=== PATIENT | female | born 1985 | race Caucasian/White ===

== ENCOUNTER 2024-05-26 20:43 | Emergency (ER) | payer MEDICAID, OTHER ==
[~2024-05-26] VITALS: Ht 157.5 cm; Wt 112.9 kg
[2024-05-26 20:59] VITALS: BP 157/107; PULSE 115; RESP 20; TEMP 97.8; O2SAT 99
[2024-05-26] MEDS ORDERED: ATA25 PO (21:30)
--- NOTE | 2024-05-26 21:37 | NUR ---
2nd set of VS taken & reported to PA
[2024-05-26 22:25] VITALS: BP 168/106; PULSE 110; RESP 18; TEMP 98; O2SAT 99
== END 2024-05-26 22:25 | disposition home or self-care (01) ==
LOC: MED 20:43
DX: F41.0 Panic disorder [episodic paroxysmal anxiety] (principal); R00.2 Palpitations; Z79.899 Other long term (current) drug therapy
CPT/HCPCS: 93005; 99283

== ENCOUNTER 2024-06-14 18:33 | Inpatient (IN) | payer OTHER ==
[~2024-06-14] VITALS: Ht 157.5 cm; Wt 112.0 kg
[~2024-06-14 18:33] MED LIST: ATA25 PO
[2024-06-14 18:57] VITALS: BP 143/85; PULSE 113; RESP 21; TEMP 98.2; O2SAT 99
[2024-06-14] MEDS: hydrOXYzine PAMOATE 25 MG CAP PO SCH (19:52)
[2024-06-14] MEDS: NACL 0.9% 1,000 ML IV ONE (19:59)
[2024-06-14 20:03] LABS: BASOPHILS # (AUTO) 0.1 K/uL (0.00-0.22); EOSINOPHILS % (AUTO) 0.3 % (0.0-4.0); HEMATOCRIT 33.1 % (36-48); HEMOGLOBIN 10.4 g/dL (12.0-16.0); LYMPHOCYTES # (AUTO) 0.9 K/uL (2.5-16.5); LYMPHOCYTES % (AUTO) 16.9 % (20.5-51.1); MEAN CORPUSCULAR HEMOGLOBIN 25 pg (27-31); MEAN CORPUSCULAR HGB CONC 31 g/dL (33-37); MEAN CORPUSCULAR VOLUME 78.7 fL (80-94); MONOCYTES # (AUTO) 0.4 K/uL (0.8-1.0); MONOCYTES % (AUTO) 8.1 % (1.7-9.3); NEUTROPHILS # (AUTO) 3.8 K/uL (1.8-7.7); NEUTROPHILS % (AUTO) 73.7 % (42.2-75.2); PLATELET COUNT (AUTO) 168 K/uL (140-450); RED CELL DISTRIBUTION WIDTH 17.7 % (11.6-13.7); WHITE BLOOD COUNT (AUTO) 5.1 K/uL (4.8-10.8)
[2024-06-14 20:26] LABS: ALANINE AMINOTRANSFERASE 81 U/L (12-78); ALBUMIN 3.3 g/dL (3.4-5.0); ALKALINE PHOSPHATASE 120 U/L (50-136); ANION GAP 14.3 (8-16); ASPARTATE AMINOTRANSFERASE 150 U/L (15-37); CALCIUM 8.2 mg/dL (8.5-10.1); CARBON DIOXIDE 25.3 mmol/L (21-32); CHLORIDE 102 mmol/L (98-107); CREATININE 0.6 mg/dL (0.6-1.3); GFR ARICAN-AMERICAN 143 mL/min (>90); GFR NON ARICAN-AMERICAN 118 mL/min (>90); GLUCOSE 103 mg/dL (74-106); POTASSIUM 3.6 mmol/L (3.5-5.1); SODIUM SERUM 138 mmol/L (136-145); TOTAL BILIRUBIN 0.5 mg/dL (0.0-1.0); TOTAL PROTEIN, SERUM 7.9 g/dL (6.4-8.2); UREA NITROGEN, BLOOD 2 mg/dL (7-18)
[2024-06-14] MEDS ORDERED: HEPARIN PER PHARMACY MC PRN ×2 (20:40→21:30)
[2024-06-14] MEDS: ASPIRIN 81 MG TAB.CHEW PO ONE (20:41)
[2024-06-14] MEDS: HYDROcodone/APAP 5/325 MG 1 TAB TAB PO ONE (20:46)
[2024-06-14] MEDS: NITROGLYCERIN 0.4 MG TAB SL ONE (20:47)
[2024-06-14 20:54] LABS: FREE T4 (FREE THYROXINE) 0.98 ng/dL (0.76-1.46); THYROID STIMULATING HORMONE 1.21 uIU/mL (0.34-3.74)
[2024-06-14 21:10] LABS: INR 1.04 (0.8-1.2); PARTIAL THROMBOPLASTIN TIME 22.5 secs (22-35.6); PROTHROMBIN TIME 10.9 secs (10.8-13.4)
[2024-06-14] MEDS ORDERED: KCL 20 MEQ IN 100 mL PREMIX 200 ML IV PRN (21:40)
[2024-06-14] MEDS ORDERED: ONDANSETRON 4 MG/2 ML VIAL IVP PRN (21:40)
[2024-06-14] MEDS ORDERED: MORPHINE SULFATE 2 MG/ML SYR IVP PRN (21:40)
[2024-06-14 23:00] VITALS: BP 112/92; PULSE 107; PULSE 109; RESP 18; TEMP 97.3; O2SAT 99
[2024-06-15] VITALS (8 sets, daily range): BP systolic 102–125; BP diastolic 69–81; PULSE 88–109; RESP 17–18; TEMP 97–98.1; O2SAT 94–98
[2024-06-15 06:49] LABS: BASOPHILS % (AUTO) 0.7 % (0.0-2.0); EOSINOPHILS % (AUTO) 0.5 % (0.0-4.0); HEMATOCRIT 30.7 % (36-48); HEMOGLOBIN 9.8 g/dL (12.0-16.0); LYMPHOCYTES # (AUTO) 1.3 K/uL (2.5-16.5); LYMPHOCYTES % (AUTO) 29.7 % (20.5-51.1); MEAN CORPUSCULAR HEMOGLOBIN 25 pg (27-31); MEAN CORPUSCULAR HGB CONC 32 g/dL (33-37); MEAN CORPUSCULAR VOLUME 78.4 fL (80-94); MONOCYTES # (AUTO) 0.6 K/uL (0.8-1.0); MONOCYTES % (AUTO) 13.9 % (1.7-9.3); NEUTROPHILS # (AUTO) 2.3 K/uL (1.8-7.7); NEUTROPHILS % (AUTO) 55.2 % (42.2-75.2); PLATELET COUNT (AUTO) 152 K/uL (140-450); RED BLOOD CELL COUNT(AUTO) 3.92 MIL/uL (4.20-5.40); RED CELL DISTRIBUTION WIDTH 18.1 % (11.6-13.7); WHITE BLOOD COUNT (AUTO) 4.2 K/uL (4.8-10.8)
[2024-06-15 07:30] LABS: ANION GAP 11.7 (8-16); CARBON DIOXIDE 27.4 mmol/L (21-32); CREATININE 0.7 mg/dL (0.6-1.3); POTASSIUM 3.1 mmol/L (3.5-5.1)
[2024-06-15] MEDS ORDERED: hePARIN / DEXT 5% PREMIX 250 ML IV SCH (07:30)
[2024-06-15 07:37] LABS: ALBUMIN 2.9 g/dL (3.4-5.0); MAGNESIUM 1.5 mg/dL (1.8-2.4); TOTAL BILIRUBIN 0.8 mg/dL (0.0-1.0)
[2024-06-15] MEDS: ASPIRIN 81 MG TAB.CHEW PO SCH (09:22)
[2024-06-15] MEDS: ATORVASTATIN 20 MG TAB PO SCH (09:23)
[2024-06-15] MEDS: POTASSIUM CHLORIDE 10 MEQ TABER PO PRN (19:19)
[2024-06-15] MEDS: MAGNESIUM OXIDE 400 MG TAB PO PRN (19:20)
[2024-06-15] MEDS: ACETAMINOPHEN 325 MG TAB PO PRN (21:45)
[2024-06-15] MEDS: MEDS-TO-BEDS MC SCH (21:47)
[2024-06-16] VITALS: BP 117/65; PULSE 83; PULSE 85; RESP 20; TEMP 97; O2SAT 98
[2024-06-16 01:19] LABS: AMPHETAMINE, URINE NEGATIVE ng/ml (NEG <=1000); BARBITURATE, URINE NEGATIVE ng/ml (NEG <=200); BENZODIAZEPINE, URINE NEGATIVE ng/mL (NEG <=200); CANNABINOID, URINE NEGATIVE ng/mL (NEG <=50); COCAINE, URINE NEGATIVE ng/mL (NEG <=300); OPIATE, URINE POSITIVE ng/mL (NEG <=2000); PHENCYCLIDINE SCREEN,URINE NEGATIVE ng/mL (NEG <=25)
[2024-06-16 04:00] VITALS: BP 129/76; PULSE 82; PULSE 86; RESP 18; TEMP 96.5; O2SAT 97
[2024-06-16 06:52] LABS: BASOPHILS % (AUTO) 0.6 % (0.0-2.0); EOSINOPHILS % (AUTO) 0.9 % (0.0-4.0); HEMATOCRIT 32.2 % (36-48); HEMOGLOBIN 10.3 g/dL (12.0-16.0); LYMPHOCYTES # (AUTO) 1.3 K/uL (2.5-16.5); LYMPHOCYTES % (AUTO) 31.9 % (20.5-51.1); MEAN CORPUSCULAR HEMOGLOBIN 25 pg (27-31); MEAN CORPUSCULAR HGB CONC 32 g/dL (33-37); MEAN CORPUSCULAR VOLUME 78.4 fL (80-94); MONOCYTES # (AUTO) 0.6 K/uL (0.8-1.0); MONOCYTES % (AUTO) 14.1 % (1.7-9.3); NEUTROPHILS # (AUTO) 2.2 K/uL (1.8-7.7); NEUTROPHILS % (AUTO) 52.5 % (42.2-75.2); PLATELET COUNT (AUTO) 146 K/uL (140-450); RED BLOOD CELL COUNT(AUTO) 4.11 MIL/uL (4.20-5.40); WHITE BLOOD COUNT (AUTO) 4.2 K/uL (4.8-10.8)
[2024-06-16 07:17] LABS: ALBUMIN 2.9 g/dL (3.4-5.0); ANION GAP 11.1 (8-16); CALCIUM 8.3 mg/dL (8.5-10.1); CARBON DIOXIDE 27.5 mmol/L (21-32); CREATININE 0.7 mg/dL (0.6-1.3); MAGNESIUM 1.9 mg/dL (1.8-2.4); POTASSIUM 3.6 mmol/L (3.5-5.1); TOTAL BILIRUBIN 0.9 mg/dL (0.0-1.0); TOTAL PROTEIN, SERUM 7.4 g/dL (6.4-8.2)
[2024-06-16 08:00] VITALS: BP 119/70; PULSE 83; PULSE 85; RESP 18; TEMP 97.2; O2SAT 98
[2024-06-16 12:00] VITALS: BP 110/62; PULSE 88; PULSE 96; RESP 18; TEMP 97.9; O2SAT 97
[2024-06-16 16:00] VITALS: BP 105/63; PULSE 88; PULSE 90; RESP 18; TEMP 97.5; O2SAT 97
[2024-06-16 20:00] VITALS: BP 117/81; PULSE 88; PULSE 89; PULSE 91; RESP 18; TEMP 96.8; O2SAT 100; O2SAT 98
[2024-06-16] MEDS: HYDROcodone/APAP 5/325 MG 1 TAB TAB PO PRN (20:11)
[2024-06-16] MEDS: LORazepam 0.5 MG TAB PO PRN (23:44)
[2024-06-17] VITALS (7 sets, daily range): BP systolic 98–124; BP diastolic 57–69; PULSE 96–145; RESP 16–24; TEMP 97.3–98.3; O2SAT 97–99
[2024-06-17] MEDS ORDERED: NACL 0.9% 500 ML IV SCH (01:00)
[2024-06-17] MEDS: NACL 0.9% 500 ML IV ONE (02:04)
[2024-06-17] MEDS: DILTIAZEM 25 MG/5 ML VIAL IVP PRN (04:37)
[2024-06-17 07:12] LABS: HEMATOCRIT 32.1 % (36-48); HEMOGLOBIN 10.3 g/dL (12.0-16.0); MEAN CORPUSCULAR HEMOGLOBIN 25 pg (27-31); MEAN CORPUSCULAR HGB CONC 32 g/dL (33-37); MEAN CORPUSCULAR VOLUME 77.9 fL (80-94); PLATELET COUNT (AUTO) 124 K/uL (140-450); RED BLOOD CELL COUNT(AUTO) 4.12 MIL/uL (4.20-5.40); RED CELL DISTRIBUTION WIDTH 17.9 % (11.6-13.7); WHITE BLOOD COUNT (AUTO) 16.5 K/uL (4.8-10.8)
[2024-06-17 07:32] LABS: ALBUMIN 2.8 g/dL (3.4-5.0); ANION GAP 12.5 (8-16); CALCIUM 8.1 mg/dL (8.5-10.1); CARBON DIOXIDE 23.6 mmol/L (21-32); CREATININE 0.9 mg/dL (0.6-1.3); MAGNESIUM 1.3 mg/dL (1.8-2.4); POTASSIUM 3.1 mmol/L (3.5-5.1); TOTAL PROTEIN, SERUM 7.1 g/dL (6.4-8.2)
[2024-06-17 07:49] LABS: ANISOCYTOSIS 1+; BASOPHILS % (MANUAL) 0 % (0-2); BLASTS, MANUAL % 0 % (0-0); EOSINOPHILS % (MANUAL) 0 % (0-4); LYMPHOCYTES % (MANUAL) 2 % (20-46); METAMYELOCYTES % 0 % (0-0); MONOCYTES % (MANUAL) 1 % (5-12); MYELOCYTES % 0 % (0-0); OTHER CELLS,MANUAL % 0 (0-0); PLASMA CELLS 0; PLATELET ESTIMATE SLIGHTLY DECREASED; PROMYELOCYTES % 0 % (0-0); SMUDGE CELLS 0
[2024-06-17] MEDS ORDERED: ATOR20TA40 PO (18:58)
[2024-06-17] MEDS ORDERED: ASPI81CT95 PO (18:58)
[2024-06-17] MEDS ORDERED: CARV6.252 PO (18:58)
[2024-06-17] MEDS: carvediloL 6.25 MG TAB PO SCH (19:03)
[2024-06-18] MEDS ORDERED: carvediloL 6.25 MG TAB PO SCH (09:00)
== END 2024-06-17 21:40 | disposition home or self-care (01) | DRG 190 ==
LOC: MED 18:33 → MTU 21:42
PROVIDERS: ADMIT Student in an Organized Health Care Education/Training Program; ATTEND Student in an Organized Health Care Education/Training Program
DX: I21.4 Non-ST elevation (NSTEMI) myocardial infarction (principal); R65.11 Systemic inflammatory response syndrome (SIRS) of non-infectious origin with acute organ dysfunction; R64 Cachexia; E44.1 Mild protein-calorie malnutrition; E83.51 Hypocalcemia; E66.9 Obesity, unspecified; I10 Essential (primary) hypertension; Z79.899 Other long term (current) drug therapy; Z68.42 Body mass index [BMI] 45.0-49.9, adult
CPT/HCPCS: 36415; 71045; 80053; 80305; 83735; 84439; 84443; 84484; 85025; 85379; 85610; 85730; 87081; 93005; 96360; 99291; J1644; J3490; Q0092; Q0177